=== PATIENT | male | born 1970 | race Caucasian/White ===

== ENCOUNTER 2023-10-04 14:29 | Inpatient (IN) | payer OTHER ==
[2023-10-04 15:22] VITALS: BMI 23.3
[2023-10-04] MEDS ORDERED: MAGNESIUM HYDROX 2400MG/30ML ORAL SUSPENSION 30 ML CUP PO PRN (16:27)
[2023-10-04] MEDS ORDERED: P-EPHED 60MG/TRIPROLIDI 2.5MG TABLET PO PRN (16:27)
[2023-10-04] MEDS ORDERED: DICYCLOMINE HCL 10 MG CAPSULE PO PRN (16:27)
[2023-10-04] MEDS ORDERED: IBUPROFEN 600 MG TABLET (FP) PO PRN (16:27)
[2023-10-04] MEDS ORDERED: NALOXONE HCL 0.4 MG/ML VIAL IM PRN (16:27)
[2023-10-04] MEDS ORDERED: POLYETHYLENE GLYCOL (HEALTHYLAX) 3350 17 GM PACKET PO PRN (16:27)
[2023-10-04] MEDS ORDERED: NICOTINE POLACRILEX 2 MG GUM BUC PRN (16:27)
[2023-10-04] MEDS ORDERED: ONDANSETRON *ODT* 4 MG TABLET SL PRN (16:27)
[2023-10-04] MEDS ORDERED: MAG HYDROX/AL HYDROX/SIMETH 30 ML UNIT-DOSE CUP PO PRN (16:27)
[2023-10-04] MEDS ORDERED: ACETAMINOPHEN 325 MG TABLET (FP) PO PRN (16:27)
[2023-10-04] MEDS ORDERED: NALOXONE (NARCAN) HCL 4 MG/0.1 ML SPRAY NS PRN (16:27)
[2023-10-04] MEDS ORDERED: LOPERAMIDE HCL 2 MG CAPSULE PO PRN (16:27)
[2023-10-04] MEDS ORDERED: guaiFENesin 600 MG TABLET.ER (FP) PO PRN (16:27)
[2023-10-04] MEDS ORDERED: BISMUTH SUBSALICYLATE 524 MG/30 ML PO PRN (16:27)
[2023-10-04] MEDS ORDERED: BENZOCAINE/MENTHOL (CHLORASEPTIC ) LOZENGE MM PRN (16:27)
[2023-10-04] MEDS ORDERED: IBUPROFEN 400 MG TABLET (FP) PO PRN (16:27)
[2023-10-04] MEDS ORDERED: BENZONATATE 200 MG CAPSULE PO PRN (16:27)
[2023-10-04] MEDS ORDERED: NICOTINE POLACRILEX 2 MG LOZENGE BC PRN (16:27)
[2023-10-04] MEDS: THIAMINE 100 MG TABLET PO SCH (22:27)
[2023-10-04] MEDS: MELATONIN 5 MG TABLETS PO SCH (22:27)
[2023-10-05] MEDS: PRENATAL VITAMINS W/ FOLIC ACID TABLET (FP) PO SCH (09:20)
[2023-10-05] MEDS ORDERED: cloNIDine HCL 0.1 MG TABLET PO PRN (10:32)
[2023-10-05 11:48] LABS: ALBUMIN 3.4 g/dl (3.4-5.0); BLOOD UREA NITROGEN 9.7 mg/dL (7-18); CALCIUM 9.1 mg/dL (8.5-10.1)
[2023-10-05] MEDS: methaDONE HCL 10 MG TABLET (FOR DETOX USE ONLY) PO ONE (11:48)
[2023-10-05 11:51] LABS: CREATININE 0.6 mg/dL (0.55-1.3)
[2023-10-05 11:53] LABS: BILIRUBIN,TOTAL 0.2 mg/dL (0.2-1); HEMATOCRIT 39.1 % (35.4-49); HEMOGLOBIN 13.1 GM/dL (11.7-16.9); MCHC 33.4 g/dl (32.0-35.9); MEAN CELL VOLUME 89.7 fl (80-96); MEAN PLT VOLUME 7.5 fl (7.5-11.1); PLATELET COUNT 314 10^3/uL (134-434); RBC 4.36 M/mm3 (4.00-5.60); TOT PROT 6.6 g/dl (6.4-8.2); WHITE BLOOD COUNT 8.3 K/mm3 (4.0-10.0)
[2023-10-05 14:25] LABS: HIV INTERPRETATION NEGATIVE (NEGATIVE)
[2023-10-05] MEDS: SUVOREXANT 10 MG TABLET PO PRN (22:14)
[2023-10-05] MEDS: OLANZapine 5 MG TABLET PO SCH (22:14)
[2023-10-07] MEDS: methaDONE HCL 10 MG TABLET (FOR DETOX USE ONLY) PO ONE (10:27)
[2023-10-09] MEDS: METHOCARBAMOL 500 MG TABLET PO PRN (05:40)
[2023-10-09] MEDS: hydrOXYzine PAMOATE 25 MG CAPSULE (FP) PO PRN (05:40)
[2023-10-09] MEDS: methaDONE HCL 10 MG TABLET (FOR DETOX USE ONLY) PO ONE (09:58)
[2023-10-10 06:04] VITALS: TEMP 97.8
[2023-10-10 09:03] VITALS: BP 121/82; PULSE 97; RESP 18
== END 2023-10-10 09:58 | disposition home or self-care (01) | DRG 773 ==
LOC: YASAS 14:29 → UNDOADMIN 17:42 → Y3N 17:42
PROVIDERS: ADMIT Allergy & Immunology; ATTEND Nurse Practitioner Psychiatric/Mental Health
PROC: HZ2ZZZZ Detoxification Services for Substance Abuse Treatment (ICD-10-PCS; principal; 2023-10-04)
DX: F11.23 Opioid dependence with withdrawal (principal); F14.10 Cocaine abuse, uncomplicated; F12.10 Cannabis abuse, uncomplicated; F17.210 Nicotine dependence, cigarettes, uncomplicated; F20.0 Paranoid schizophrenia; I10 Essential (primary) hypertension; E11.9 Type 2 diabetes mellitus without complications
CPT/HCPCS: 36415; 71046-TC-FY; 80053; 80305; 82962; 85027; 86780; 86803; 87389; 93005; 93010

== ENCOUNTER 2024-04-23 13:52 | Inpatient (IN) | payer OTHER ==
[2024-04-23 14:33] VITALS: BMI 24.5
[2024-04-23] MEDS ORDERED: guaiFENesin 600 MG TABLET.ER (FP) PO PRN (15:56)
[2024-04-23] MEDS ORDERED: POLYETHYLENE GLYCOL (HEALTHYLAX) 3350 17 GM PACKET PO PRN (15:56)
[2024-04-23] MEDS ORDERED: BENZONATATE 200 MG CAPSULE PO PRN (15:56)
[2024-04-23] MEDS ORDERED: hydrOXYzine PAMOATE 25 MG CAPSULE (FP) PO PRN (15:56)
[2024-04-23] MEDS ORDERED: BISMUTH SUBSALICYLATE 524 MG/30 ML PO PRN (15:56)
[2024-04-23] MEDS ORDERED: ACETAMINOPHEN 325 MG TABLET (FP) PO PRN (15:56)
[2024-04-23] MEDS ORDERED: NICOTINE POLACRILEX 2 MG GUM BUC PRN (15:56)
[2024-04-23] MEDS ORDERED: ONDANSETRON *ODT* 4 MG TABLET SL PRN (15:56)
[2024-04-23] MEDS ORDERED: LOPERAMIDE HCL 2 MG CAPSULE PO PRN (15:56)
[2024-04-23] MEDS ORDERED: METHOCARBAMOL 500 MG TABLET PO PRN (15:56)
[2024-04-23] MEDS ORDERED: MAG HYDROX/AL HYDROX/SIMETH 30 ML UNIT-DOSE CUP PO PRN (15:56)
[2024-04-23] MEDS ORDERED: IBUPROFEN 600 MG TABLET (FP) PO PRN (15:56)
[2024-04-23] MEDS ORDERED: IBUPROFEN 400 MG TABLET (FP) PO PRN (15:56)
[2024-04-23] MEDS ORDERED: NALOXONE (NARCAN) HCL 4 MG/0.1 ML SPRAY NS PRN (15:56)
[2024-04-23] MEDS ORDERED: DICYCLOMINE HCL 10 MG CAPSULE PO PRN (15:56)
[2024-04-23] MEDS ORDERED: MAGNESIUM HYDROX 2400MG/30ML ORAL SUSPENSION 30 ML CUP PO PRN (15:56)
[2024-04-23] MEDS ORDERED: BENZOCAINE/MENTHOL (CHLORASEPTIC ) LOZENGE MM PRN (15:56)
[2024-04-23] MEDS: MIRTAZAPINE 15 MG TABLET (FP) PO SCH (22:49)
[2024-04-23] MEDS: MELATONIN 5 MG TABLETS PO SCH (22:50)
[2024-04-23] MEDS: THIAMINE 100 MG TABLET PO SCH (22:50)
[2024-04-24] MEDS: PRENATAL VITAMINS W/ FOLIC ACID TABLET (FP) PO SCH (10:51)
[2024-04-24] MEDS: NICOTINE 7 MG/24 HOURS TOPICAL PATCH TD SCH (10:51)
[2024-04-24 11:10] LABS: HEMATOCRIT 40.4 % (35.4-49); HEMOGLOBIN 13.2 GM/dL (11.7-16.9); MCH 30.1 pg (25.7-33.7); MCHC 32.5 g/dl (32.0-35.9); MEAN CELL VOLUME 92.5 fl (80-96); MEAN PLT VOLUME 7.6 fl (7.5-11.1); PLATELET COUNT 233 10^3/uL (134-434); RBC 4.37 M/mm3 (4.00-5.60); RDW 15.1 % (11.9-15.9); WHITE BLOOD COUNT 10.1 K/mm3 (4.0-10.0)
[2024-04-24 11:13] LABS: CHLORIDE 108 mmol/L (98-107); POTASSIUM 4.1 mmol/L (3.5-5.1); SODIUM 140 mmol/L (136-145)
[2024-04-24 11:20] LABS: ALBUMIN 3.4 g/dl (3.4-5.0); ANION GAP 8 mmol/L (4-13); BLOOD UREA NITROGEN 16.6 mg/dL (7-18); CO2 24 mmol/L (21-32); GLUCOSE,RANDOM 100 mg/dL (74-106)
[2024-04-24 11:22] LABS: CALCIUM 9.1 mg/dL (8.5-10.1)
[2024-04-24 11:23] LABS: CREATININE 0.7 mg/dL (0.55-1.3); SGOT/AST 13 U/L (15-37)
[2024-04-24 11:24] LABS: SGPT/ALT 15 U/L (13-61)
[2024-04-24 11:25] LABS: BILIRUBIN,TOTAL 0.4 mg/dL (0.2-1); TOT PROT 6.5 g/dl (6.4-8.2)
[2024-04-24 11:26] LABS: ALK PHOS 77 U/L (45-117)
[2024-04-24] MEDS: risperiDONE 1 MG TABLET PO SCH (22:24)
[2024-04-24] MEDS: traZODone HCL 50 MG TABLET (FP) PO SCH (22:24)
[2024-04-24] MEDS: MIRTAZAPINE 15 MG TABLET (FP) PO SCH (22:24)
[2024-04-25 09:08] VITALS: BP 105/68; PULSE 107; RESP 18; TEMP 97.5
[2024-04-25] MEDS: LISINOPRIL 5 MG TABLET PO SCH (10:28)
[2024-04-25] MEDS: NALOXONE (NYS OPIOID OVERDOSE PROGRAM) 4 MG/0.1 ML SPRAY NS SCH (12:11)
[2024-04-25] MEDS ORDERED: ATORVASTATIN CA 20 MG TABLET (FP) PO SCH (22:00)
== END 2024-04-25 12:32 | disposition other institution (70) | DRG 773 ==
LOC: YASAS 13:52 → Y3N 18:09
PROVIDERS: ADMIT Allergy & Immunology; ATTEND Allergy & Immunology
PROC: HZ2ZZZZ Detoxification Services for Substance Abuse Treatment (ICD-10-PCS; principal; 2024-04-23)
DX: F11.20 Opioid dependence, uncomplicated (principal); F14.20 Cocaine dependence, uncomplicated; F12.20 Cannabis dependence, uncomplicated; F17.210 Nicotine dependence, cigarettes, uncomplicated; F19.280 Other psychoactive substance dependence with psychoactive substance-induced anxiety disorder; F20.0 Paranoid schizophrenia; I10 Essential (primary) hypertension; E78.5 Hyperlipidemia, unspecified; E11.9 Type 2 diabetes mellitus without complications; Z79.84 Long term (current) use of oral hypoglycemic drugs
CPT/HCPCS: 36415; 80053; 80305; 80307; 82962; 85027; 86780; 93005; 93010